=== PATIENT | female | born 1950 | race Caucasian/White ===

== ENCOUNTER 2025-01-19 11:57 | Inpatient (IN) | payer MEDICARE, OTHER ==
[~2025-01-19] VITALS: Ht 170.2 cm; Wt 80.3 kg
[2025-01-19 12:37] LABS: PLATELET COUNT (AUTO) 151 K/uL (150-450); RED BLOOD CELL COUNT(AUTO) 3.41 MIL/uL (4.00-5.20); RED CELL DISTRIBUTION WIDTH 16.6 % (11.5-14.5); WHITE BLOOD COUNT (AUTO) 5.3 K/uL (4.5-11.0)
[2025-01-19] MEDS: ACETAMINOPHEN 1000 MG/ISO-OSM 100 ML IV ONE (12:39)
[2025-01-19] MEDS: SODIUM CHLORIDE 0.9% 2,400 ML IV ONE (12:40)
[2025-01-19 12:43] LABS: CALCIUM, TOTAL 8.3 mg/dL (8.8-10.5); CREATININE 0.87 mg/dL (0.60-1.30); GLOMERULAR FILTR. RATE CALC > 60 mL/min (>60); GLUCOSE,RANDOM 171 mg/dL (70-110); SODIUM SERUM 137 mmol/L (136-145); UREA NITROGEN, BLOOD 19 mg/dL (7-18)
[2025-01-19 12:50] LABS: ASPARTATE AMINOTRANSFERASE 37 U/L (15-37); TOTAL PROTEIN, SERUM 7.1 g/dL (6.4-8.2)
[2025-01-19 12:50] LABS: COVID AG,FIA SOURCE NASAL SWAB
[2025-01-19 12:53] LABS: LACTIC ACID 1.1 mmol/L (0.4-2.0)
[2025-01-19 12:54] LABS: TROPONIN I-HIGH SENSITIVITY 19 ng/L (<51)
[2025-01-19] MEDS: ACETAMINOPHEN 500 MG TABLET PO ONE (13:04)
[2025-01-19] MEDS: MORPHINE SULFATE 4 MG/ML SYRINGE IVP ONE (13:04)
[2025-01-19] MEDS: ONDANSETRON HCL 4 MG/2 ML VIAL IVP ONE (13:04)
[2025-01-19 13:05] LABS: APPEARANCE,URINE TURBID (CLEAR); GLUCOSE, URINE (UA) NEGATIVE (NEGATIVE); LEUKOCYTE ESTERASE ,URINE LARGE (NEGATIVE); NITRATE,URINE POSITIVE (NEGATIVE); OCCULT BLOOD,URINE MODERATE (NEGATIVE); SPECIFIC GRAVITIY, URINE 1.012 (1.003-1.030)
[2025-01-19 13:21] LABS: INFLUENZA TYPE A NEGATIVE FOR TYPE A (NEGATIVE); INFLUENZA TYPE B NEGATIVE FOR TYPE B (NEGATIVE); SARS-COV2 (COVID) ANTIGEN,FIA Negative (Negative)
[2025-01-19] MEDS: CefTRIAXone 1 GM/DEXTROSE 50 ML IV ONE (14:30)
[2025-01-19] MEDS: 0.9% SODIUM CHLORIDE 10 ML SYRINGE IVP PRN (14:31)
[2025-01-19] MEDS ORDERED: IOHEXOL 350 MG/ML 100 ML VIAL ONE (16:53)
[2025-01-19] MEDS ORDERED: SODIUM CHLORIDE 0.9% 100 ML ONE (16:53)
[2025-01-19] MEDS ORDERED: 0.9% SODIUM CHLORIDE 10 ML SYRINGE IVP ONE (16:54)
[2025-01-19] MEDS ORDERED: ONDANSETRON HCL 4 MG/2 ML VIAL IVP PRN (17:45)
[2025-01-19] MEDS ORDERED: DEXTROSE 50%-WATER 25 GM/50 ML SYRINGE IVP PRN (17:45)
[2025-01-19 18:02] LABS: % IRON SATURATION 4.3 % (22-44); IRON, SERUM 15.0 mcg/dL (50-175)
[2025-01-19 20:00] VITALS: BP 146/64; PULSE 119; RESP 20; TEMP 100; O2SAT 95
[2025-01-19] MEDS: DOCUSATE SODIUM 100 MG CAPSULE PO SCH (20:16)
[2025-01-19] MEDS: ACETAMINOPHEN 325 MG TABLET PO PRN (20:17)
[2025-01-19] MEDS: INSULIN LISPRO 100 UNITS/ML SQ PRN (20:34)
[2025-01-19 23:42] VITALS: BP 118/54; PULSE 88; RESP 18; TEMP 98.8; O2SAT 97
[2025-01-19] MEDS ORDERED: SODIUM CHLORIDE 0.9% 250 ML IV ONE (23:45)
[2025-01-19] MEDS: PIPERACILLIN/TAZO 3.375 GM/D5W 50 ML IV SCH (23:54)
[2025-01-20] MEDS: HEPARIN SODIUM,PORCINE 5,000 UNITS/ML VIAL SQ SCH
[2025-01-20 05:18] VITALS: BP 123/62; PULSE 87; RESP 18; TEMP 98.9; O2SAT 97
[2025-01-20 05:45] LABS: GLUCOMETER DEV NAME(LOC) 5N.2C; GLUCOSE,POINT OF CARE 144 MG/DL (70-110)
[2025-01-20 06:16] LABS: GLUCOMETER DEV NAME(LOC) 5S.2E; GLUCOSE,POINT OF CARE 117 MG/DL (70-110)
[2025-01-20 07:00] LABS: CALCIUM, TOTAL 8.1 mg/dL (8.8-10.5); CREATININE 0.90 mg/dL (0.60-1.30); GLOMERULAR FILTR. RATE CALC > 60 mL/min (>60); GLUCOSE,RANDOM 131 mg/dL (70-110); SODIUM SERUM 135 mmol/L (136-145); UREA NITROGEN, BLOOD 14 mg/dL (7-18)
[2025-01-20 08:44] LABS: PLATELET COUNT (AUTO) 117 K/uL (150-450); RED BLOOD CELL COUNT(AUTO) 3.36 MIL/uL (4.00-5.20); RED CELL DISTRIBUTION WIDTH 16.5 % (11.5-14.5); WHITE BLOOD COUNT (AUTO) 3.7 K/uL (4.5-11.0)
[2025-01-20 09:57] VITALS: BP 134/62; PULSE 105; RESP 18; TEMP 101.7; O2SAT 95
[2025-01-20] MEDS: *CLINICAL-LEVOFLOXACIN IVPB DOSING CLINICAL ONE (12:09)
[2025-01-20 13:32] VITALS: BP 139/61; PULSE 95; RESP 18; TEMP 99.7; O2SAT 95
[2025-01-20] MEDS ORDERED: CefTRIAXone 1 GM/DEXTROSE 50 ML IV SCH (14:00)
[2025-01-20] MEDS: LEVOFLOXACIN 750 MG/D5% WATER 150 ML IV SCH (14:17)
[2025-01-20 17:45] LABS: GLUCOMETER DEV NAME(LOC) 5N.2C; GLUCOSE,POINT OF CARE 150 MG/DL (70-110)
[2025-01-20 17:45] LABS: GLUCOMETER DEV NAME(LOC) 5N.2C; GLUCOSE,POINT OF CARE 157 MG/DL (70-110)
[2025-01-20 20:31] VITALS: BP 138/65; PULSE 94; RESP 18; TEMP 99.3; O2SAT 99
[2025-01-20 20:35] VITALS: TEMP 99.8
[2025-01-20 23:07] VITALS: BP 108/66; PULSE 94; RESP 18; TEMP 98.1; O2SAT 97
[2025-01-20] MEDS: MELATONIN 5 MG TABLET PO PRN (23:56)
[2025-01-21 03:48] VITALS: BP 121/52; PULSE 83; RESP 18; TEMP 97.9; O2SAT 100
[2025-01-21 07:18] VITALS: BP 133/64; PULSE 98; RESP 18; TEMP 98; O2SAT 98
[2025-01-21 08:46] LABS: GLUCOMETER DEV NAME(LOC) 5S.1E; GLUCOSE,POINT OF CARE 156 MG/DL (70-110)
[2025-01-21 08:46] LABS: GLUCOMETER DEV NAME(LOC) 5S.1E; GLUCOSE,POINT OF CARE 201 MG/DL (70-110)
[2025-01-21 11:11] LABS: PLATELET COUNT (AUTO) 135 K/uL (150-450); RED BLOOD CELL COUNT(AUTO) 3.55 MIL/uL (4.00-5.20); RED CELL DISTRIBUTION WIDTH 16.8 % (11.5-14.5); WHITE BLOOD COUNT (AUTO) 2.5 K/uL (4.5-11.0)
[2025-01-21 11:32] VITALS: BP 130/59; PULSE 87; RESP 18; TEMP 98.2; O2SAT 96
[2025-01-21 11:46] LABS: GLUCOMETER DEV NAME(LOC) 5S.1E; GLUCOSE,POINT OF CARE 264 MG/DL (70-110)
[2025-01-21 16:00] VITALS: BP 136/53; PULSE 84; RESP 20; TEMP 97.9; O2SAT 100
[2025-01-21] MEDS: CefTRIAXone SODIUM 2 GM in DEXTROSE 5%-WATER 50 ML IV SCH (16:13)
[2025-01-21 19:41] LABS: GLUCOMETER DEV NAME(LOC) 6N.2C; GLUCOSE,POINT OF CARE 125 MG/DL (70-110)
[2025-01-21] MEDS: INSULIN GLARGINE,HUM.REC.ANLOG 100 UNITS/ML SQ SCH (20:37)
[2025-01-21 21:23] VITALS: BP 145/71; PULSE 92; RESP 19; TEMP 99.8; O2SAT 96
[2025-01-22 00:20] VITALS: TEMP 98.1
[2025-01-22 05:11] VITALS: BP 150/76; PULSE 90; RESP 18; TEMP 98.2; O2SAT 99
[2025-01-22 05:41] LABS: GLUCOMETER DEV NAME(LOC) 6N.2C; GLUCOSE,POINT OF CARE 150 MG/DL (70-110)
[2025-01-22 05:55] LABS: GLUCOMETER DEV NAME(LOC) 6N.2C; GLUCOSE,POINT OF CARE 147 MG/DL (70-110)
[2025-01-22 08:50] VITALS: BP 133/81; PULSE 82; RESP 19; TEMP 98; O2SAT 100
[2025-01-22 09:45] LABS: PLATELET COUNT (AUTO) 150 K/uL (150-450); RED BLOOD CELL COUNT(AUTO) 3.53 MIL/uL (4.00-5.20); RED CELL DISTRIBUTION WIDTH 16.5 % (11.5-14.5); WHITE BLOOD COUNT (AUTO) 3.2 K/uL (4.5-11.0)
[2025-01-22 09:50] LABS: CALCIUM, TOTAL 8.5 mg/dL (8.8-10.5); CREATININE 0.82 mg/dL (0.60-1.30); GLOMERULAR FILTR. RATE CALC > 60 mL/min (>60); GLUCOSE,RANDOM 107 mg/dL (70-110); SODIUM SERUM 138 mmol/L (136-145); UREA NITROGEN, BLOOD 7 mg/dL (7-18)
[2025-01-22 13:31] LABS: GLUCOMETER DEV NAME(LOC) 6N.2C; GLUCOSE,POINT OF CARE 163 MG/DL (70-110)
[2025-01-22] MEDS ORDERED: MAGNESIUM SULFATE 4 GM/WATER 100 ML IV PRN (14:30)
[2025-01-22] MEDS ORDERED: POTASSIUM CHLORIDE 20 MEQ ER TABLET PO PRN (14:30)
[2025-01-22] MEDS ORDERED: POTASSIUM CHL 10 MEQ/WATER 50 ML IV PRN (14:30)
[2025-01-22] MEDS ORDERED: MAGNESIUM SULFATE 2 GM/WATER 50 ML IV PRN (14:30)
[2025-01-22] MEDS: MAGNESIUM OXIDE 400 MG TABLET PO PRN (14:44)
[2025-01-22 15:44] VITALS: BP 153/58; PULSE 91; RESP 18; TEMP 98.1; O2SAT 100
[2025-01-22] MEDS: CefTRIAXone SODIUM 2 GM in DEXTROSE 5%-WATER 50 ML IV SCH (17:10)
[2025-01-22 18:15] LABS: GLUCOMETER DEV NAME(LOC) 6N.2C; GLUCOSE,POINT OF CARE 186 MG/DL (70-110)
[2025-01-22 20:00] VITALS: BP 119/51; PULSE 62; RESP 18; TEMP 97.7; O2SAT 100
[2025-01-23 02:50] LABS: GLUCOMETER DEV NAME(LOC) 6N.2C; GLUCOSE,POINT OF CARE 144 MG/DL (70-110)
[2025-01-23 04:00] VITALS: BP 129/62; PULSE 78; RESP 18; TEMP 98; O2SAT 98
[2025-01-23 06:16] LABS: GLUCOMETER DEV NAME(LOC) 6N.2C; GLUCOSE,POINT OF CARE 177 MG/DL (70-110)
[2025-01-23 09:05] VITALS: BP 131/50; PULSE 87; RESP 18; TEMP 97.9; O2SAT 98
[2025-01-23 12:21] LABS: GLUCOMETER DEV NAME(LOC) 6N.2C; GLUCOSE,POINT OF CARE 226 MG/DL (70-110)
[2025-01-23] MEDS: AMOX TR/POT CLAV 875 MG/125 MG TABLET PO SCH (12:30)
[2025-01-23] MEDS ORDERED: AMOX-457 PO (14:45)
[2025-01-23] MEDS ORDERED: METF-1211 PO (14:47)
[2025-01-23] MEDS ORDERED: LISI-892 PO (14:47)
[2025-01-23 16:00] VITALS: BP 133/72; PULSE 87; RESP 17; TEMP 98; O2SAT 99
== END 2025-01-23 18:44 | disposition home or self-care (01) | DRG 871 ==
LOC: EMS 11:59 → EDBD 11:59 → EDH 16:46 → 5N 18:58 → 6S 01-21 16:01
PROVIDERS: ADMIT Internal Medicine; ATTEND Internal Medicine
DX: A41.50 Gram-negative sepsis, unspecified (principal); I50.33 Acute on chronic diastolic (congestive) heart failure; N39.0 Urinary tract infection, site not specified; B96.20 Unspecified Escherichia coli [E. coli] as the cause of diseases classified elsewhere; E11.9 Type 2 diabetes mellitus without complications; I48.0 Paroxysmal atrial fibrillation; I45.10 Unspecified right bundle-branch block; B96.89 Other specified bacterial agents as the cause of diseases classified elsewhere; Z79.01 Long term (current) use of anticoagulants; Z20.822 Contact with and (suspected) exposure to COVID-19; R06.03 Acute respiratory distress; R29.6 Repeated falls; Z90.12 Acquired absence of left breast and nipple; Z90.49 Acquired absence of other specified parts of digestive tract; Z90.710 Acquired absence of both cervix and uterus
CPT/HCPCS: 70450; 71045; 71260; 72125; 72193; 74160; 80048; 80076; 81001; 82040; 82962; 83540; 83550; 83605; 83735; 83880; 84145; 84484; 85025; 85045; 85610; 85651; 86140; 87040; 87077; 87086; 87186; 87205; 87804; 93005; 93306; 96361; 96365; 96375; 97116; 97162; 97530; 99291; G0378; J0696; J1644; J1815; J1956; J2270; J2405; J2543; J7050; J7060; 36415-L1; 36415-TC